=== PATIENT | female | born 1980 | race Caucasian/White ===

== ENCOUNTER 2018-06-17 18:31 | Emergency (ER) | payer BC ==
--- NOTE | 2018-06-17 18:54 | ER Document Report ---
ED Medical Screen (RME) - General Chief Complaint: Hand Pain Stated Complaint: FINGER PAIN Time Seen by Provider: 06/17/18 18:47 Mode of Arrival: Ambulatory Information source: Patient Notes: 37-year-old female presents with complaint of right third finger pain, swelling and purulent discharge. Patient reports an I&D was performed on this finger on May 16, 2018. She was started on Augmentin. She states that cultures were drawn and showed that the bacteria was resistant to Augmentin. This was performed at an urgent care. Patient states that today she struck her finger again and had purulent drainage coming from the nail bed. I have greeted and performed a rapid initial assessment of this patient. A comprehensive ED assessment and evaluation of the patient, analysis of test results and completion of medical decision making process we will be contacted by additional ED providers. PHYSICAL EXAMINATION: Vital signs reviewed-afebrile, hypertensive GENERAL: Well-appearing, well-nourished and in no acute distress. LUNGS: No respiratory distress Musculoskeletal: Normal range of motion NEUROLOGICAL: Normal speech, normal gait. PSYCH: Normal mood, normal affect. SKIN: Swelling, fluctuance, tenderness of the right third distal phalanx. TRAVEL OUTSIDE OF THE [place] IN LAST 30 DAYS: No - HPI Onset: Other Onset/Duration: Intermittent Quality of pain: Throbbing Severity: Moderate Associated Symptoms: denies: Fever, Nausea Exacerbated by: Movement Relieved by: Denies Similar symptoms previously: Yes Recently seen / treated by doctor: Yes - Related Data Smoking: Cigarettes Frequency of alcohol use: None Drug Abuse: None Allergies/Adverse Reactions: No Known Allergies Allergy (Unverified 06/17/18 18:36) Physical Exam - Vital signs Vitals: Temp Pulse Resp BP Pulse Ox 98.2 F 91 18 160/94 H 100 06/17/18 18:38 06/17/18 18:38 06/17/18 18:38 06/17/18 18:38 06/17/18 18:38 Course - Vital Signs Vital signs: Temp Pulse Resp BP Pulse Ox 98.2 F 91 18 160/94 H 100 06/17/18 18:38 06/17/18 18:38 06/17/18 18:38 06/17/18 18:38 06/17/18 18:38 Doctor's Discharge - Discharge Referrals: LOCALMD,NO [Primary Care Provider] - Follow up as needed
[2018-06-17] MEDS ORDERED: SULFAMETHOXAZOLE/TRIMETHOPRIM 800-160 MG TABLET PO ONE (20:43)
[2018-06-17] MEDS ORDERED: TRAMADOL HCL 50 MG TABLET PO ONE (21:23)
--- NOTE | 2018-06-17 21:27 | ER Document Report ---
ED General - General Chief Complaint: Hand Pain Stated Complaint: FINGER PAIN Time Seen by Provider: 06/17/18 18:47 Mode of Arrival: Ambulatory TRAVEL OUTSIDE OF THE [place] IN LAST 30 DAYS: No - HPI Patient complains to provider of: Right middle finger pain Notes: Patient coming in for evaluation of right middle finger pain. Patient has a history of having an abscess requiring I&D in the past with a culture report showed that she grew out Proteus species sensitive to Bactrim. 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 Patient otherwise states she is attempting to keep her hands clean wearing gloves at work and also using copious muscle side. Patient otherwise denies any fever chills nausea vomiting diarrhea - Related Data Allergies/Adverse Reactions: No Known Allergies Allergy (Unverified 06/17/18 18:36) Past Medical History - General Information source: Patient - Social History Smoking Status: Never Smoker Chew tobacco use (# tins/day): No Frequency of alcohol use: None Drug Abuse: None Family History: Reviewed & Not Pertinent Patient has suicidal ideation: No Patient has homicidal ideation: No - Past Medical History Cardiac Medical History: Reports: Hx Hypertension Renal/ Medical History: Denies: Hx Peritoneal Dialysis Review of Systems - Review of Systems Constitutional: No symptoms reported EENT: No symptoms reported Cardiovascular: No symptoms reported Respiratory: No symptoms reported Gastrointestinal: No symptoms reported Genitourinary: No symptoms reported Female Genitourinary: No symptoms reported Musculoskeletal: No symptoms reported Skin: No symptoms reported Hematologic/Lymphatic: No symptoms reported Neurological/Psychological: No symptoms reported -: Yes All other systems reviewed and negative Physical Exam - Vital signs Vitals: Temp Pulse Resp BP Pulse Ox 98.2 F 91 18 160/94 H 100 06/17/18 18:38 06/17/18 18:38 06/17/18 18:38 06/17/18 18:38 06/17/18 18:38 Interpretation: Normal - General General appearance: Appears well, Alert - HEENT Head: Normocephalic, Atraumatic Eyes: Normal Pupils: PERRL - Respiratory Respiratory status: No respiratory distress Chest status: Nontender Breath sounds: Normal Chest palpation: Normal - Cardiovascular Rhythm: Regular Heart sounds: Normal auscultation Murmur: No - Abdominal Inspection: Normal Distension: No distension Bowel sounds: Normal Tenderness: Nontender Organomegaly: No organomegaly - Back Back: Normal, Nontender - Extremities General upper extremity: Nontender, Normal color, Normal ROM, Normal temperature. No: Normal inspection - Left hand infected patient with a middle finger on the right side paronychia no tenderness to palpation of the pad of the finger no signs of a Phalen range of motion intact no extensor or flexor tenderness no signs of tenosynovitis General lower extremity: Normal inspection, Nontender, Normal color, Normal ROM , Normal temperature, Normal weight bearing. No: Aleksander's sign - Neurological Neuro grossly intact: Yes Cognition: Normal Orientation: AAOx4 [place] Coma Scale Eye Opening: Spontaneous [place] Coma Scale Verbal: Oriented Raffaele Coma Scale Motor: Obeys Commands Raffaele Coma Scale Total: 15 Speech: Normal Motor strength normal: LUE, RUE, LLE, RLE Sensory: Normal - Psychological Associated symptoms: Normal affect, Normal mood - Skin Skin Temperature: Warm Skin Moisture: Dry Skin Color: Normal Course - Re-evaluation Re-evalutation: 06/17/18 23:27 Patient coming in for evaluation of a wound. And he was performed that the patient place her finger and is cold water distinct and using an 11 blade did lift the cuticle area and lateral nailbed away from the nail expressing scant amount of purulent material. This was sent for culture. Patient will be started on Bactrim due to her culture results from the last abscess that she had. Patient was given Ultram for pain control discharged home - Vital Signs Vital signs: Temp Pulse Resp BP Pulse Ox 97.7 F 74 18 150/100 H 100 06/17/18 21:40 06/17/18 21:40 06/17/18 21:40 06/17/18 21:40 06/17/18 21:40 Procedures - Incision and Drainage Right 3rd digit Type: Simple Blade size: 11 I&D procedure: Other - Alcohol pad Incision Method: Incision made by scalpel Amount/type of drainage: Scant purulent material from paronychia Discharge - Discharge Clinical Impression: Paronychia Condition: Good Disposition: HOME, SELF-CARE Instructions: Paronychia ([facility]) Additional Instructions: Your evaluation shows a small abscess to your finger we did open this up and drained out pus we do need to start you on an antibiotic you may take Tylenol Motrin for pain Ultram for severe pain please make sure you keep your hands clean return to ER symptoms worsen Prescriptions: Sulfamethoxazole/Trimethoprim [Bactrim Ds Tablet] 1 each PO BID #20 tablet Tramadol HCl [Ultram 50 mg Tablet] 50 mg PO ASDIR PRN #14 tablet PRN Reason: Referrals: LOCALMD,NO [NO LOCAL MD] - Follow up as needed
[2018-06-17 21:41] VITALS: BP 150/100
== END 2018-06-17 21:43 | disposition home or self-care (01) ==
LOC: ER 18:31
PROC: 0H9QXZZ Drainage of Finger Nail, External Approach (ICD-10-PCS; principal; 2018-06-17)
DX: L03.011 Cellulitis of right finger (principal); M79.644 Pain in right finger(s); I10 Essential (primary) hypertension
CPT/HCPCS: 87070; 87075; 87077; 87205; 99283